=== PATIENT | female | born 1950 ===

== ENCOUNTER 2017-10-20 07:03 | Day surgery (SDC) | payer OTHER, MEDICAID ==
[2017-10-20 07:50] VITALS: BMI 26.9
[2017-10-20] MEDS ORDERED: Propofol 10 mg/ml Inj (20 ML) ONE (10:35)
[2017-10-20] MEDS ORDERED: Lidocaine 2% Inj (20ml) ONE (10:35)
--- NOTE | 2017-10-20 10:37 | CP.SDSHP ---
Same Day Surgery H & P - History Proposed Procedure: EGD Pre-Op Diagnosis: abdominal pain - Previous Medical/Surgical History Pulmonary: Asthma - Allergies Allergies: Allergies No Known Allergies Allergy (Verified 04/16/16 13:27) - Physical Exam General Appearance: NAD Vital Signs: Vital Signs 10/20/17 07:50 Temperature 99.3 F Pulse Rate 80 Respiratory 20 Rate Blood Pressure 122/60 O2 Sat by Pulse 97 Oximetry Mental Status: Alert & Oriented x3 Neuro: WNL Heart: WNL Lungs: WNL GI: WNL - {Optional Preform as Required} Abdomen: WNL - Impression Pt. Evaluated Today:Candidate for Anesthesia & Procedure: Yes - Date & Time Date: 10/20/17 Time: 10:37 Short Stay Discharge - Short Stay Discharge Admitting Diagnosis/Reason for Visit: EPIGASTRIC PAIN,FAMILY HISTORY OF MALIGNANT NEOPLA Disposition: HOME/ ROUTINE
[2017-10-20 11:13] VITALS: TEMP 97.1; O2SAT 100
[2017-10-20 12:32] VITALS: BP 120/68; PULSE 72; RESP 12
== END 2017-10-20 11:50 | disposition home or self-care (01) ==
LOC: C.ENDO 07:03
PROVIDERS: ATTEND Internal Medicine Gastroenterology
DX: K20.9 Esophagitis, unspecified (principal); K29.50 Unspecified chronic gastritis without bleeding; K44.9 Diaphragmatic hernia without obstruction or gangrene
CPT/HCPCS: 43239; 88305; 88312; 88313; 88342; J2704

== ENCOUNTER 2019-01-13 12:40 | Emergency (ER) | payer MEDICARE, MEDICAID ==
[2019-01-13 12:54] VITALS: BMI 29.2
[2019-01-13 13:02] VITALS: PULSE 59; TEMP 98
--- NOTE | 2019-01-13 14:03 | C.PDOC ---
History Of Present Illness 68 year old female, whose past medical history includes gastritis and diverticulitis, presents to the ED for evaluation of sharp chest pain which began earlier today. Patient attributes her symptoms to gastritis, stating her symptoms began after drinking a cup of coffee this morning. She states her pain has resolved and denies fever, chills, nausea, vomiting, diarrhea. Pain was sharp, no radiation, no sob. Time Seen by Provider: 01/13/19 13:12 Chief Complaint (Nursing): Chest Pain History Per: Patient History/Exam Limitations: no limitations Onset/Duration Of Symptoms: Hrs Quality: Sharp, "Pain" Additional History Per: Patient Past Medical History Reviewed: Historical Data, Nursing Documentation, Vital Signs Vital Signs: Last Vital Signs Temp 98.0 F 01/13/19 13:01 Pulse 59 L 01/13/19 13:01 Resp 18 01/13/19 13:01 BP 121/75 01/13/19 13:01 Pulse Ox 100 01/13/19 13:01 - Medical History PMH: Anxiety, Asthma, Cardia Arrhythmia, Depression, Diverticulitis, Gastritis, HTN Denies: Chronic Kidney Disease Surgical History: Cholecystectomy, Endoscopy Family History: States: Unknown Family Hx - Social History Hx Tobacco Use: No Hx Alcohol Use: No Hx Substance Use: No - Immunization History Hx Tetanus Toxoid Vaccination: No Hx Influenza Vaccination: Yes Hx Pneumococcal Vaccination: Yes Review Of Systems Constitutional: Negative for: Fever, Chills Cardiovascular: Positive for: Chest Pain Gastrointestinal: Negative for: Nausea, Vomiting, Diarrhea Physical Exam - Physical Exam Appears: Non-toxic, No Acute Distress Skin: Normal Color, Warm, Dry Head: Atraumatic, Normacephalic Eye(s): bilateral: Normal Inspection Oral Mucosa: Moist Neck: Supple Chest: Symmetrical, No Deformity, No Tenderness Cardiovascular: Rhythm Regular, No Murmur Respiratory: Normal Breath Sounds, No Rales, No Rhonchi, No Wheezing Gastrointestinal/Abdominal: Soft, No Tenderness, No Guarding, No Rebound Extremity: Normal ROM, Capillary Refill (less than 2 seconds ) Neurological/Psych: Oriented x3, Normal Speech, Normal Cognition ED Course And Treatment - Laboratory Results Result Diagrams: 01/13/19 14:11 01/13/19 14:11 ECG: Interpreted By Me, Viewed By Me ECG Rhythm: Sinus Rhythm Interpretation Of ECG: Normal Sinus rhythm at rate 64bpm. Normal interals, normal axis. No ST/T wave abnormalities. Rate From EC O2 Sat by Pulse Oximetry: 100 (on RA) Pulse Ox Interpretation: Normal Medical Decision Making Medical Decision Making: Assessment: chest pain Plan: * bloodwork * CXR * EKG * Toradol IVP * reassess and disposition Progress: Bloodwork, CXR, EKG ordered and reviewed. Toradol IVP given. Patient has heart score of 3. Disposition Counseled Patient/Family Regarding: Studies Performed, Diagnosis, Need For Followup, Rx Given - Disposition Referrals: Aparna Kim MD [Staff Provider] - Disposition: HOME/ ROUTINE Disposition Time: 19:37 Condition: FAIR Additional Instructions: follow up with your doctor within 2 days call to make an appointment take pain medication as needed return to ER if symptoms worsens or progress Prescriptions: Naproxen [Naprosyn] 500 mg PO BID PRN #16 tab PRN Reason: Pain, Moderate (4-7) Instructions: Costochondritis (DC) Forms: [facility] (Faroese), General Discharge Instructions - Clinical Impression Clinical Impression: Chest wall pain - Scribe Statement The provider has reviewed the documentation as recorded by the Scribe (Aviva Berrios) Provider Attestation: All medical record entries made by the Scribe were at my direction and personally dictated by me. I have reviewed the chart and agree that the record accurately reflects my personal performance of the history, physical exam, medical decision making, and the department course for this patient. I have also personally directed, reviewed, and agree with the discharge instructions and disposition.
[2019-01-13 14:21] LABS: BASO # 0.1 K/uL (0.0-0.2); BASO % 0.7 % (0.0-2.0); EOS # 0.1 K/uL (0.0-0.7); EOS % 1.6 % (0.0-4.0); HEMOGLOBIN 11.4 g/dL (11.0-16.0); LYMPH # 2.4 K/uL (1.0-4.3); LYMPH % 27.5 % (20.0-40.0); MEAN CELL VOLUME 92.9 fL (81.0-99.0); MEAN CORPUSCULAR HEMOGLOBIN 31.3 pg (27.0-31.0); MEAN CORPUSCULAR HGB CONC 33.7 g/dL (33.0-37.0); MEAN PLATELET VOLUME 9.3 fL (7.2-11.7); MONO # 0.4 K/uL (0.0-0.8); MONO % 4.3 % (0.0-10.0); NEUT # 5.7 K/uL (1.8-7.0); NEUT % 65.9 % (50.0-75.0); RBC 3.65 Mil/uL (3.80-5.20); RED CELL DISTRIBUTION WIDTH 13.3 % (11.5-14.5); WHITE BLOOD COUNT 8.6 K/uL (4.8-10.8)
[2019-01-13 14:33] LABS: ALB/GLOB RATIO 1.5 (1.0-2.1); ALBUMIN 3.8 g/dL (3.5-5.0); ALT/SGPT 16 U/L (9-52); AST/SGOT 19 U/L (14-36); BLOOD UREA NITROGEN 10 mg/dL (7-17); CALCIUM 9.3 mg/dl (8.6-10.4); GFR NON-AFRICAN AMERICAN > 60
[2019-01-13 14:38] VITALS: BP 144/75; RESP 16
[2019-01-13 14:40] LABS: B-TYPE NATRIURETIC PEPTIDE 155 pg/mL (0-900)
--- NOTE | 2019-01-13 14:44 | RAD ---
Date of service: 01/13/2019 HISTORY: Shortness of breath COMPARISON: No prior. TECHNIQUE: Chest PA and lateral FINDINGS: LINES AND TUBES: None. LUNG AND PLEURA: The lungs are well inflated and clear. No pleural effusion or pneumothorax. HEART AND MEDIASTINUM: The heart is not enlarged. No aortic atherosclerotic calcifications present. The hilar and mediastinal contours are within normal limits. SKELETAL STRUCTURES: The bony structures are within normal limits for the patient's age. VISUALIZED UPPER ABDOMEN: Normal. OTHER FINDINGS: None. IMPRESSION: No active pulmonary disease.
[2019-01-13 16:01] VITALS: O2SAT 100
== END 2019-01-13 19:52 | disposition home or self-care (01) ==
LOC: C.ER 12:40
DX: R07.89 Other chest pain (principal)
CPT/HCPCS: 71046; 80053; 82550; 83880; 84484; 85025; 96374; 96375; 99285; J1885